=== PATIENT | male | born 2000 | race Two or more races ===

== ENCOUNTER 2022-03-17 04:41 | Emergency (ER) | payer SELFPAY ==
[~2022-03-17] VITALS: Ht 170.2 cm; Wt 63.5 kg
[2022-03-17 05:19] VITALS: BP 132/86
== END 2022-03-17 06:02 | disposition home or self-care (01) ==
LOC: EDBD 04:41 → ER 04:41
DX: F10.129 Alcohol abuse with intoxication, unspecified (principal); Y90.9 Presence of alcohol in blood, level not specified